=== PATIENT | male | born 1965 | race American Indian/Alaskan Native ===

== ENCOUNTER 2022-03-14 07:02 | Day surgery (SDC) | payer BC ==
[~2022-03-14 07:02] MED LIST: ACETAMINOPHEN 500 MG TAB PO SCH; CELECOXIB 200 MG CAP PO NR; GABAPENTIN 300 MG CAP PO NR; LACTATED RINGERS 1,000 ML IV SCH; MIDAZOLAM 2 MG/2 ML INJ IV NR
[2022-03-14] MEDS ORDERED: propofoL 200 MG/20 ML VIAL IV ONE (07:22)
[2022-03-14] MEDS ORDERED: fentaNYL 100 MCG/2 ML INJ ONE (07:22)
[2022-03-14] MEDS ORDERED: LIDOCAINE MPF (2%) 20 MG/1 ML VIAL 5 ML ONE (07:27)
[2022-03-14] MEDS ORDERED: HYDROmorphone 0.5 MG/0.5 ML INJ IV PRN (07:30)
[2022-03-14] MEDS ORDERED: oxyCODONE /ACETAMINOPHEN 5-325MG TAB PO PRN (07:30)
[2022-03-14] MEDS ORDERED: ONDANSETRON 4 MG/2 ML INJ IV PRN (07:30)
[2022-03-14] MEDS ORDERED: EPINEPHrine/PF 1 MG/1 ML INJ ONE (07:33)
--- NOTE | 2022-03-14 07:36 | Anesthesia Consultation ---
Anesthesia Consult and Med Hx Date of service: 03/14/22 - Airway Anesthetic Teeth Evaluation: Good ROM Head & Neck: Adequate Mental/Hyoid Distance: Adequate Mallampati Class: Class II Intubation Access Assessment: Probably Good - Pre-Operative Health Status ASA Pre-Surgery Classification: ASA1 Proposed Anesthetic Plan: General - Pulmonary Hx Smoking: No Hx Respiratory Symptoms: No Hx Sleep Apnea: No (RANDOLPH PRE SCREEN LOW RISK) - Cardiovascular System Hx Hypertension: No - Central Nervous System CVA: No - Endocrine Hx Renal Disease: No Hx Liver Disease: No Hx Insulin Dependent Diabetes: No Hx Non-Insulin Dependent Diabetes: No Hx Thyroid Disease: No - Other Systems Hx Obesity: No - Additional Comments Anesthesia Medical History Comments: No hx anesthetic complications.
--- NOTE | 2022-03-14 07:37 | Anesthesia Day of Surgery ---
Anesthesia Day of Surgery - Day of Surgery Patient Examined: Yes Patient H&P Reviewed: Yes Patient is NPO: Yes
[2022-03-14] MEDS ORDERED: BUPIVACAINE/PF (0.25%) 2.5 MG/ML 10 ML VIAL INFILTRATI ONE ×3 (07:47→09:23)
[2022-03-14] MEDS ORDERED: ceFAZolin/STERILE WATER 2 GM/20 ML SYRINGE IV NR (08:00)
[2022-03-14] MEDS ORDERED: ePHEDrine SULFATE 50 MG/1 ML INJ ONE (08:29)
[2022-03-14] MEDS ORDERED: EPINEPHrine/PF 1 MG/1 ML INJ IV ONE (08:52)
[2022-03-14] MEDS ORDERED: SODIUM CHLORIDE 0.9% IRRIG SOLN 2000 ML IR ONE ×2 (08:53)
--- NOTE | 2022-03-14 09:15 | Discharge Summary ---
Short Stay Discharge Plan Activity: no restrictions Weight Bearing Status: Weight Bear as Tolerated Diet: regular Wound: change dressing (in 48 hrs) Durable Medical Equipment Needed Upon Discharge: Crutches Follow up with: AJITH RODNEY JR, MD [Primary Care Provider] - 7 Days NARAYAN MONTES II, MD [Staff Physician] - 14 Days
--- NOTE | 2022-03-14 09:57 | Operative Report ---
DATE OF SURGERY: 03/14/2022 PREOPERATIVE DIAGNOSIS: Right knee medial meniscus tear. POSTOPERATIVE DIAGNOSIS: Right knee medial meniscus tear. PROCEDURE PERFORMED: Right knee partial medial meniscectomy. SURGEON: Shine Hodges II, MD. CURING ROOM SUPERVISOR: None. ANESTHESIA: General. COMPLICATIONS: None. DRAINS: None. SPECIMENS: None. TOURNIQUET TIME: 27 minutes. Examination under anesthesia reveals full range of motion, no instability. OPERATIVE FINDINGS: Grade 3 chondromalacia of medial femoral condyle and a tear of the posterior horn of the medial meniscus, extending into the red-white zone with delamination. INDICATIONS: The patient is a 56-year-old male who has been having refractory pain in the right knee. Evaluation workup suggested a medial meniscus tear and it was recommended the patient undergo surgical management. Risks, benefits and limitations of surgery were discussed with the patient including bleeding, infection, injury to nerves, blood vessel and need for operation. The patient appeared to understand the risks and consented to undergo surgery. TECHNIQUE: In the preoperative holding area, site was marked with surgical marking pen and extremity was prepped and draped in a sterile fashion in a supine position. Standard anteromedial and anterolateral portals were placed and diagnostic arthroscopy was performed. The patellofemoral joint appeared to be normal. The lateral compartment was normal. In the medial compartment, there was noted to be a tear of the posterior horn of the medial meniscus, extending into the red-white zone. There was delamination of the tear as well as a displaced flap in the extreme posterior horn. Using an oscillating shaver and biter, the meniscus was debrided back to a stable rim. The ACL and PCL were noted to be intact as well. The arthroscope was then removed. Incisions were closed with 3-0 nylon. A 0.25% Marcaine was injected, 20 mL. The patient was awakened and taken to recovery room in a stable condition. POSTOPERATIVE PLAN: The patient will be weightbear as tolerated, do physical therapy and work on range of motion exercises. We will plan to see the patient back for a followup visit at 2 weeks postop. TID: [id number] RECEIPT: [id number] [facility]
[2022-03-14 10:23] VITALS: BP 117/73
--- NOTE | 2022-03-14 11:37 | Post Anesthesia Evaluation ---
- Post Anesthesia Evaluation Patient Participated: Yes Airway Patent: Yes Stable Respiratory Function: Yes Nausea/Vomiting: No Temp > 96.8F: Yes Pain Manageable: Yes Adequeate Hydration: Yes Anesthesia Complications: No
== END 2022-03-14 10:40 | disposition home or self-care (01) ==
LOC: OR 07:02
PROVIDERS: ATTEND Orthopaedic Surgery Sports Medicine
DX: S83.241A Other tear of medial meniscus, current injury, right knee, initial encounter (principal); D64.9 Anemia, unspecified; Z88.2 Allergy status to sulfonamides; Z79.899 Other long term (current) drug therapy; Z98.890 Other specified postprocedural states; X58.XXXA Exposure to other specified factors, initial encounter; Y93.89 Activity, other specified; Y92.89 Other specified places as the place of occurrence of the external cause; Y99.8 Other external cause status
CPT/HCPCS: 29881; J0171; J0690; J2250; J2704; J3010; J3490; J7120